=== PATIENT | female | born 1980 | race Caucasian/White ===

== ENCOUNTER → 2019-08-09 | Outpatient (CLI) | payer OTHER, SELFPAY ==
[2019-08-15 20:22] LABS: HPV Reflexed? NOT INDICATED
== END | disposition home or self-care (01) ==
LOC: LABSPEC 16:03
PROVIDERS: Family Provider Family Medicine; PCP Family Medicine; Referring Provider Obstetrics & Gynecology; Visit Provider Obstetrics & Gynecology
DX: Z12.4 Encounter for screening for malignant neoplasm of cervix (principal)
CPT/HCPCS: 88175; G0145

== ENCOUNTER → 2019-09-09 09:35 | Outpatient (CLI) | payer OTHER, SELFPAY ==
[2019-09-09 11:21] LABS: Estradiol 16.6 pg/mL; Follicle Stimulating Hormone 107.3 mIU/mL; Prolactin 7.1 ng/mL
[2019-09-10 07:06] LABS: DHEA Sulfate 185.2 ug/dL (57.3-279.2)
[2019-09-10 11:05] LABS: Sex Hormone-binding Globulin 27.1 nmol/L (24.6-122.0)
[2019-09-12 19:10] LABS: Anion Gap 6 (5-15); BUN 11 mg/dL (7-18); BUN/Creat Ratio 12.9 RATIO (10-20); Calcium,Total 8.9 mg/dL (8.5-10.1); Chloride 105 mmol/L (98-107); Creatinine, Serum 0.85 mg/dL (0.55-1.02); EST Glomerular Filtration Rate 80 mL/min (>60); Est Glom Filt Rate - Afr Amer 97 mL/min (>60); Glucose 68 mg/dL (74-106); Potassium 4.1 mmol/L (3.5-5.1); Sodium Level 140 mmol/L (136-145); Thyroid Stim Hormone (TSH) 1.32 uIU/mL (0.358-3.74)
[2019-09-13 10:39] LABS: AST(SGOT) 25 U/L (15-37); Alanine Aminotransfer ALT/SGPT 36 U/L (13-56); Alkaline Phosphatase 63 U/L (45-117); Bilirubin, Direct 0.22 mg/dL (0.00-0.30); Protein, Total 7.4 g/dL (6.4-8.2)
== END ==
PROVIDERS: Family Provider Family Medicine; PCP Family Medicine; Referring Provider Obstetrics & Gynecology; Visit Provider Obstetrics & Gynecology
DX: N91.2 Amenorrhea, unspecified (principal)
CPT/HCPCS: 36415; 80048; 80076; 82533; 82627; 82670; 83001; 84146; 84270; 84403; 84443; 82626

== ENCOUNTER → 2019-11-29 08:00 | Outpatient (CLI) | payer OTHER, SELFPAY ==
--- NOTE | 2019-11-29 08:05 | ECHOD_ITS ---
Reason For Study: CHRONIC LEUKEMIA Procedure This was a 2D Doppler, Color Flow transthoracic echocardiogram. Exam performed in department. Left Ventricle Normal size and thickness. The estimated ejection fraction is 65 %. The global longitudinal strain = -18.8 % (normal). Normal diastology for age. No regional wall motion abnormalities noted. Right Ventricle Normal size and thickness. Normal systolic function. Atria Normal left atrium. Normal right atrium. Probable chiari network. Normal atrial septum. Mitral Valve The mitral valve is structurally normal. No prolapse or stenosis seen. Tricuspid Valve Normal tricuspid valve. Trivial tricuspid valve insufficiency. Right ventricular systolic pressure estimated to be 19 mmHg. Aortic Valve Normal aortic valve. Trisinus/trileaflet aortic valve. Pulmonic Valve Normal pulmonic valve. Great Vessels Normal aortic root. Normal arch. Normal inferior vena cava. Inferior vena cava collapse with sniff. Pericardium/Pleural No pericardial effusion. MMode/2D Measurements & Calculations LVIDd: 3.7 cm IVSd: 0.94 cm Ao root diam: 3.1 cm LVIDs: 2.6 cm LVPWd: 0.86 cm RVDd: 2.7 cm FS: 29.7 % LAV(MOD-bp): 40.8 ml LA A4 area: 13.7 cm2 LA dimension(2D): 3.2 cm LAV(MOD-bp) Indexed: 24.6 ml/m2 LAV(MOD-sp2): 37.0 ml LAV(MOD-sp4): 39.6 ml RA A4 area: 11.2 cm2 Time Measurements MV dec time: 0.22 sec Doppler Measurements & Calculations MV E max donaldo: 75.4 cm/sec Lat Peak E' Donaldo: 12.5 cm/sec Med Peak E' Donaldo: 9.7 cm/sec MV A max donaldo: 57.1 cm/sec E/E' lat: 6.1 E/E' med: 7.7 MV E/A: 1.3 Ao V2 max: 98.0 cm/sec LV V1 max: 87.4 cm/sec PA V2 max: 65.7 cm/sec Ao max P.8 mmHg LV V1 max P.1 mmHg Interpretation Summary The estimated ejection fraction is 65 %. The global longitudinal strain = -18.8 % (normal). Normal diastology for age. Probable chiari network vs tip of cathter noted in RA. Trivial tricuspid valve insufficiency. Right ventricular systolic pressure estimated to be 19 mmHg. Compared to echo report dated 07/14/2017, no appreciable changes noted. Ordering Physician: Camacho Hernandez Referring Physician: Camacho Hernandez Performed By: Amanda Pena, YOSVANY, RVT
== END ==
PROVIDERS: PCP Family Medicine; Referring Provider Family Medicine; Visit Provider Family Medicine
DX: C95.11 Chronic leukemia of unspecified cell type, in remission (principal)
CPT/HCPCS: 93306

== ENCOUNTER → 2019-12-13 | Outpatient (CLI) | payer OTHER, SELFPAY ==
[2019-12-18 12:27] LABS: HPV APTIMA, High Risk Negative (Negative)
[2019-12-18 12:31] LABS: HPV Reflexed? YES, CHARGE PATIENT
== END | disposition home or self-care (01) ==
LOC: LABSPEC 15:45
PROVIDERS: PCP Family Medicine; Referring Provider Obstetrics & Gynecology; Visit Provider Obstetrics & Gynecology
DX: Z12.4 Encounter for screening for malignant neoplasm of cervix (principal)
CPT/HCPCS: 87624; 88175; G0145

== ENCOUNTER → 2020-06-05 08:14 | Outpatient (CLI) | payer OTHER, SELFPAY ==
[2020-06-05 10:18] LABS: Absolute Lymphocyte Count 0.92 X10^3/uL (0.83-4.51); Absolute Neutrophil Count 1.8 X10^3/uL (2.0-7.7); Basophil# 0.03 X10^3/uL; Eosinophil# 0.03 X10^3/uL; Hematocrit 40.1 % (37-47); Hemoglobin 13.4 g/dL (12.0-15.0); Lymphocyte # 0.92 X10^3/ul (4.0); Lymphocyte % 29.5 % (19-41); Mean Corp Hgb Conc 33.4 g/dL (32-36); Mean Corpuscular Volume 92.8 fL (81-99); Mean Platelet Vol. 9.7 fl (6.2-12.0); Monocyte# 0.37 X10^3/uL; Monocyte% 11.9 % (0-10); NRBC Flagged by Analyzer 0 % (0-5); Neutrophil # 1.76 X10^3/uL (2.7-7.7); Neutrophil % 56.3 % (47-70); Platelet Count 158 K/mm3 (150-450); RBC Distribution Width CV 12.3 % (11.6-14.6); RBC Distribution Width SD 42.4 fl (35.1-43.9); Red Blood Count 4.32 M/mm3 (4.2-5.4); White Blood Count 3.1 K/mm3 (4.4-11.0)
[2020-06-05 10:46] LABS: Vitamin D,25 Hydroxy 41.6 ng/mL
[2020-06-05 11:18] LABS: ALB/GLOB Ratio 1.1 RATIO (0.9-2.4); AST(SGOT) 21 U/L (15-37); Alanine Aminotransfer ALT/SGPT 36 U/L (13-56); Alkaline Phosphatase 61 U/L (45-117); Anion Gap 4 (5-15); BUN 8 mg/dL (7-18); BUN/Creat Ratio 10.3 RATIO (10-20); Calcium,Total 8.8 mg/dL (8.5-10.1); Chloride 106 mmol/L (98-107); Cholesterol 198 mg/dL (200); Creatinine, Serum 0.78 mg/dL (0.55-1.02); EST Glomerular Filtration Rate 88 mL/min (>60); Est Glom Filt Rate - Afr Amer 106 mL/min (>60); Globulin 3.5 g/dL (2.2-4.2); Glucose 90 mg/dL (74-106); High Density Lipoprotein 79 mg/dL; Potassium 4.2 mmol/L (3.5-5.1); Protein, Total 7.5 g/dL (6.4-8.2); Sodium Level 139 mmol/L (136-145); Thyroid Stim Hormone (TSH) 0.89 uIU/mL (0.358-3.74); Triglycerides 60 mg/dL; Very Low Density Lipoprotein 12 mg/dL (5-40)
[2020-06-05 11:19] LABS: Estradiol 16.5 pg/mL
[2020-06-06 11:01] LABS: Sex Hormone-binding Globulin 28.3 nmol/L (24.6-122.0)
== END ==
PROVIDERS: PCP Family Medicine; Referring Provider Family Medicine; Visit Provider Family Medicine
DX: I10 Essential (primary) hypertension (principal); Z86.39 Personal history of other endocrine, nutritional and metabolic disease; Z13.220 Encounter for screening for lipoid disorders
CPT/HCPCS: 36415; 80053; 80061; 82306; 82670; 84270; 84443; 85025

== ENCOUNTER → 2020-12-26 13:19 | Outpatient (CLI) | payer OTHER, SELFPAY ==
[2020-12-26 15:35] LABS: Progesterone Level 0.64 ng/mL (See Comment)
== END ==
PROVIDERS: PCP Family Medicine; Referring Provider Obstetrics & Gynecology; Visit Provider Obstetrics & Gynecology
DX: E28.39 Other primary ovarian failure (principal)
CPT/HCPCS: 36415; 82670; 84144

== ENCOUNTER → 2021-03-04 08:34 | Outpatient (CLI) | payer OTHER, SELFPAY ==
--- NOTE | 2021-03-04 08:37 | BD_ITS ---
STUDY: DUAL ENERGY X-RAY ABSORPTIOMETRY / DXA REASON FOR EXAM: Female, 41 years old. E28.310 -- PREMATURE PHILIP. TECHNIQUE: Bone Mineral Density (BMD) measurements of lumbar spine and bilateral hips were obtained. COMPARISON: None. FINDINGS: Lumbar Spine (L1-L4): g/cm2 (1.069) / T-score (-0.9) / Z-score (-0.9) Findings are suggestive of normal bone density with a low fracture risk. Left Femur Total: g/cm2 (1.017) / T-score (0.1) / Z-score (0.3) Left Femoral Neck: g/cm2 (0.922) / T-score (-0.8) / Z-score (-0.4) Right Femur Total: g/cm2 (0.961) / T-score (-0.4) / Z-score (-0.2) Right Femoral Neck: g/cm2 (0.870) / T-score (-1.2) / Z-score (-0.8) BD/Dexa Bone Density Study IMPRESSION: The patient is considered osteopenic as outlined below according to World Smith Organization (WHO) criteria with a low fracture risk. Reference Information: The T-score is the number of standard deviations above or below the standard which is normal for young adults at their peak bone mineral density. The World Health Organization (WHO) interprets the T-scores as follows: Above -1 Normal bone density Between -1 and -2.5 Osteopenia Equal to / or below -2.5 Osteoporosis As a practical clinical guideline, osteopenia may be graded as follows: Mild -1 through -1.5 Moderate -1.6 through -2.0 Severe -2.1 through -2.4 The Z-score is the number of standard deviations above or below age-matched controls. A Z-score of less than -1.5 would be considered abnormal. References: 1. NIH Osteoporosis and Related Bone Diseases www osteo.org 2. International Society for Clinical Densitometry www iscd.org 3. National Osteoporosis Foundation www nof.org Electronically Signed: Yimi Gibson MD at 12:33 EDT , Service support ,
== END ==
PROVIDERS: PCP Family Medicine; Referring Provider Obstetrics & Gynecology; Visit Provider Obstetrics & Gynecology
DX: E28.310 Symptomatic premature menopause (principal)
CPT/HCPCS: 77080

== ENCOUNTER → 2022-05-06 | Outpatient (CLI) | payer OTHER, SELFPAY ==
[2022-05-06 10:03] LABS: Hematocrit 37.1 % (37-47); Hemoglobin 12.3 g/dL (12.0-15.0); Mean Corp Hgb Conc 33.2 g/dL (32-36); Mean Corpuscular Volume 90.5 fL (81-99); Mean Platelet Vol. 10.2 fl (6.2-12.0); Platelet Count 148 K/mm3 (150-450); RBC Distribution Width CV 12.7 % (11.6-14.6); RBC Distribution Width SD 41.1 fl (35.1-43.9); White Blood Count 3.2 K/mm3 (4.4-11.0)
[2022-05-06 10:17] LABS: Progesterone Level 0.89 ng/mL (See Comment); Vitamin D,25 Hydroxy 44.1 ng/mL
[2022-05-06 10:24] LABS: ALB/GLOB Ratio 1.2 RATIO (0.9-2.4); AST(SGOT) 15 U/L (15-37); Alanine Aminotransfer ALT/SGPT 22 U/L (13-56); Albumin, Serum 3.8 g/dL (3.2-5.0); Alkaline Phosphatase 52 U/L (45-117); Anion Gap 4 (5-15); BUN 15 mg/dL (7-18); BUN/Creat Ratio 19.7 RATIO (10-20); Calcium,Total 8.4 mg/dL (8.5-10.1); Chloride 106 mmol/L (98-107); Cholesterol 161 mg/dL (200); Creatinine, Serum 0.76 mg/dL (0.55-1.02); EST Glomerular Filtration Rate 89 mL/min (>60); Est Glom Filt Rate - Afr Amer 108 mL/min (>60); Estradiol 17.6 pg/mL; Globulin 3.2 g/dL (2.2-4.2); Glucose 93 mg/dL (74-106); High Density Lipoprotein 59 mg/dL; Potassium 3.9 mmol/L (3.5-5.1); Sodium Level 139 mmol/L (136-145); Triglycerides 93 mg/dL; Very Low Density Lipoprotein 19 mg/dL (5-40)
[2022-05-11 12:07] LABS: Testosterone, % Free 2.32 % (0.50-2.80); Testosterone, Free 0.23 ng/dL (0.10-0.85); Testosterone, Total 10 ng/dL (8-60)
[2022-05-11 16:12] LABS: Sex Hormone-binding Globulin 29.2 nmol/L (24.6-122.0)
== END | disposition home or self-care (01) ==
PROVIDERS: PCP Family Medicine; Referring Provider Obstetrics & Gynecology; Visit Provider Obstetrics & Gynecology
DX: E28.310 Symptomatic premature menopause (principal); E28.39 Other primary ovarian failure; Z13.1 Encounter for screening for diabetes mellitus; Z79.890 Hormone replacement therapy
CPT/HCPCS: 36415; 80053; 80061; 82306; 82670; 84144; 84270; 84402; 84403; 85027

== ENCOUNTER → 2023-03-05 | Outpatient (CLI) | payer OTHER, SELFPAY ==
[2023-03-05 12:52] LABS: Absolute Lymphocyte Count 1.54 X10^3/uL (0.83-4.51); Absolute Neutrophil Count 2.8 X10^3/uL (2.0-7.7); Basophil# 0.06 X10^3/uL; Basophil% 1.2 % (0-1); Eosinophil# 0.03 X10^3/uL; Eosinophils% 0.6 % (0-5); Hematocrit 38.1 % (37-47); Hemoglobin 13.4 g/dL (12.0-15.0); Lymphocyte # 1.54 X10^3/ul (0.83-4.51); Lymphocyte % 31.7 % (19-41); Mean Corp Hgb Conc 35.2 g/dL (32-36); Mean Corpuscular Hgb 30.2 pg (27.0-32.0); Mean Corpuscular Volume 85.8 fL (81-99); Mean Platelet Vol. 12.2 fl (6.2-12.0); Monocyte# 0.44 X10^3/uL; Monocyte% 9.1 % (0-10); NRBC Flagged by Analyzer 0 % (0-5); Neutrophil # 2.77 X10^3/uL (2.7-7.7); Platelet Count 143 K/mm3 (150-450); RBC Distribution Width CV 12.4 % (11.6-14.6); RBC Distribution Width SD 38.4 fl (35.1-43.9); Red Blood Count 4.44 M/mm3 (4.2-5.4); White Blood Count 4.9 K/mm3 (4.4-11.0)
[2023-03-05 13:15] LABS: Hemoglobin A1c 4.8 % (3.8-5.6); Progesterone Level 0.68 ng/mL (See Comment); Vitamin B12 475 pg/mL (211-911); Vitamin D,25 Hydroxy 31.8 ng/mL
[2023-03-05 13:33] LABS: ALB/GLOB Ratio 1.4 RATIO (0.9-2.4); AST(SGOT) 16 U/L (15-37); Alanine Aminotransfer ALT/SGPT 23 U/L (13-56); Albumin, Serum 4.4 g/dL (3.2-5.0); Alkaline Phosphatase 64 U/L (45-117); Anion Gap 6 (5-15); BUN 16 mg/dL (7-18); BUN/Creat Ratio 21.7 RATIO (10-20); Calcium,Total 9.1 mg/dL (8.5-10.1); Chloride 104 mmol/L (98-107); Cholesterol 179 mg/dL (200); Creatinine, Serum 0.74 mg/dL (0.55-1.02); EST Glomerular Filtration Rate 92 mL/min (>60); Est Glom Filt Rate - Afr Amer 112 mL/min (>60); Estradiol 53.9 pg/mL; Free T3 2.7 pg/mL (2.18-3.98); Globulin 3.2 g/dL (2.2-4.2); Glucose 96 mg/dL (74-106); High Density Lipoprotein 67 mg/dL; Potassium 4.3 mmol/L (3.5-5.1); Protein, Total 7.6 g/dL (6.4-8.2); Sodium Level 138 mmol/L (136-145); T4 Free Direct 0.94 ng/dL (0.76-1.46); Thyroid Stim Hormone (TSH) 1.82 uIU/mL (0.358-3.74); Triglycerides 71 mg/dL; Very Low Density Lipoprotein 14 mg/dL (5-40)
[2023-03-08 16:08] LABS: Thyroglobulin Antibody < 1.0 IU/mL (0.0-0.9); Thyroid Peroxidase AB 10 IU/mL (0-34)
== END | disposition home or self-care (01) ==
LOC: LABSPEC 12:28
PROVIDERS: PCP Family Medicine; Referring Provider Nurse Practitioner Family; Visit Provider Nurse Practitioner Family
DX: I10 Essential (primary) hypertension (principal); E28.39 Other primary ovarian failure; R59.0 Localized enlarged lymph nodes; L65.9 Nonscarring hair loss, unspecified
CPT/HCPCS: 80053; 80061; 82306; 82607; 82627; 82670; 83036; 84144; 84403; 84439; 84443; 84481; 85025; 86376; 86800; 82626

== ENCOUNTER → 2023-09-01 | Outpatient (CLI) | payer OTHER, SELFPAY ==
[2023-09-01 13:14] LABS: Vitamin D,25 Hydroxy 49.9 ng/mL
== END | disposition home or self-care (01) ==
LOC: LABSPEC 12:28
PROVIDERS: PCP Family Medicine; Referring Provider Nurse Practitioner Family; Visit Provider Nurse Practitioner Family
DX: E55.9 Vitamin D deficiency, unspecified (principal)
CPT/HCPCS: 82306

== ENCOUNTER → 2024-01-28 12:00 | Outpatient (REF) | payer OTHER, SELFPAY ==
[2024-01-28 12:37] LABS: Estradiol 26.9 pg/mL; Follicle Stimulating Hormone 75.3 mIU/mL; Luteinizing Hormone 35.1 mIU/mL
[2024-01-28 12:39] LABS: Progesterone Level 0.34 ng/mL (See Comment)
== END ==
LOC: LABSPEC 12:00
PROVIDERS: PCP Family Medicine; Referring Provider Nurse Practitioner Family; Visit Provider Nurse Practitioner Family
DX: E28.9 Ovarian dysfunction, unspecified (principal)
CPT/HCPCS: 82670; 83001; 83002; 84144; 84403

== ENCOUNTER → 2024-11-10 | Outpatient (CLI) | payer BC, SELFPAY ==
[2024-11-10 14:05] LABS: Absolute Lymphocyte Count 1.85 X10^3/uL (0.83-4.51); Absolute Neutrophil Count 3.2 X10^3/uL (2.0-7.7); Basophil# 0.06 X10^3/uL; Eosinophil# 0.21 X10^3/uL; Eosinophils% 3.6 % (0-5); Hematocrit 38.4 % (37-47); Hemoglobin 13.6 g/dL (12.0-15.0); Lymphocyte # 1.85 X10^3/ul (0.83-4.51); Lymphocyte % 31.5 % (19-41); Mean Corp Hgb Conc 35.4 g/dL (32-36); Mean Corpuscular Hgb 33.2 pg (27.0-32.0); Mean Corpuscular Volume 93.7 fL (81-99); Monocyte# 0.53 X10^3/uL; NRBC Flagged by Analyzer 0 % (0-5); Neutrophil # 3.21 X10^3/uL (2.7-7.7); Neutrophil % 54.7 % (47-70); Platelet Count 196 K/mm3 (150-450); RBC Distribution Width SD 43.8 fl (35.1-43.9); White Blood Count 5.9 K/mm3 (4.4-11.0)
[2024-11-10 14:14] LABS: Estradiol 97.3 pg/mL; Ferritin 46 ng/mL (8-252); Follicle Stimulating Hormone 57.9 mIU/mL; Iron 98 ug/dL (50-170); Luteinizing Hormone 25.3 mIU/mL
== END | disposition home or self-care (01) ==
PROVIDERS: PCP Family Medicine; Referring Provider Nurse Practitioner Family; Visit Provider Nurse Practitioner Family
DX: N92.6 Irregular menstruation, unspecified (principal)
CPT/HCPCS: 82627; 82670; 82728; 83001; 83002; 83540; 84144; 84403; 85025; 82626